=== PATIENT | female | born 1970 | race Caucasian/White ===

== ENCOUNTER → 2017-10-15 | Outpatient (CLI) | payer OTHER | LOC: M LRY 10:10 | DX: M25.521 Pain in right elbow (principal) | CPT/HCPCS: 73030; G0463 ==

== ENCOUNTER → 2019-11-30 | Outpatient (CLI) | payer OTHER ==
--- NOTE | 2019-11-30 14:20 | REP ---
Clinical: Trauma. Fall. Technique: AP, lateral, bilateral oblique views of the left elbow elbow. Findings: No acute fracture or dislocation is appreciated. Joint spaces and surrounding soft tissues appear normal. Lateral view demonstrates normal positioning to the anterior and posterior fat pads without evidence for effusion/hemarthrosis. No subcutaneous emphysema or foreign body identified. Impression: No fracture or dislocation. Electronically Signed by Jey Napoles MD 11/30/2019 02:11 P
== END ==
LOC: M LRY 13:30
PROVIDERS: ATTEND Nurse Practitioner Family
DX: S59.902A Unspecified injury of left elbow, initial encounter (principal); Y92.9 Unspecified place or not applicable; Y93.9 Activity, unspecified; Y99.9 Unspecified external cause status
CPT/HCPCS: 73080; G0463

== ENCOUNTER → 2022-11-27 | Outpatient (CLI) | payer OTHER ==
[~2022-11-27] MED LIST: JANU25TA PO; LIDOCAINE 1% MDV 20ML VIAL As Ordered ONE; METF10004 PO
[2022-11-27 10:50] VITALS: BP 153/88; TEMP 98.6; O2SAT 98
== END ==
LOC: M IRPRO 10:25
PROVIDERS: ATTEND Otolaryngology
DX: D37.032 Neoplasm of uncertain behavior of the submandibular salivary glands (principal)

== ENCOUNTER 2024-01-25 10:35 | Emergency (ER) | payer OTHER ==
[~2024-01-25] VITALS: Ht 157.5 cm; Wt 80.5 kg
[~2024-01-25 10:35] MED LIST changes: +EXCETAB22 PO; +IBUP200C28 PO; -LIDOCAINE 1% MDV 20ML VIAL As Ordered ONE
[2024-01-25 11:14] LABS: BASO # 0.1 10^3/uL (0.0-0.2); BASO % 0.5 % (0.0-1.0); EOS # 0.1 10^3/uL (0.0-0.5); EOS % 0.7 % (0.0-3.0); HEMATOCRIT 52.8 % (36.0-47.0); HEMOGLOBIN 17.5 g/dl (12.0-15.5); LYMPH # 1.6 10^3/uL (1.5-5.0); LYMPH % 11.7 % (24.0-44.0); MEAN CORPUSCULAR HEMOGLOBIN 27.5 pg (27.0-33.0); MEAN CORPUSCULAR HGB CONC 33.1 g/dl (32.0-36.5); MONO # 1.1 10^3/uL (0.0-0.8); MONO % 7.9 % (2.0-8.0); NEUTROPHILS # 10.9 10^3/uL (1.5-8.5); NEUTROPHILS % 78.6 % (36.0-66.0); PLATELET COUNT, AUTOMATED 288 10^3/uL (150-450); RED BLOOD COUNT 6.36 10^6/uL (4.00-5.40); WHITE BLOOD COUNT 13.9 10^3/uL (4.0-10.0)
[2024-01-25 11:19] LABS: PARTIAL THROMBOPLASTIN TIME 23.4 SECONDS (24.8-34.2); PROTHROMBIN TIME 12.9 SECONDS (12.5-14.5)
[2024-01-25] MEDS: ONDANSETRON 4MG 2ML VIAL IV ONE (11:22)
[2024-01-25] MEDS: KETOROLAC 30 MG/ML 1ML VIAL IV ONE (11:22)
[2024-01-25] MEDS: ASPIRIN 81MG CHEW TABLET PO ONE (11:22)
[2024-01-25] MEDS: NS 1,000 ML IV ONE (11:23)
[2024-01-25] MEDS: MORPHINE 2 MG/ML 1ML VIAL IV PRN (11:23)
[2024-01-25 11:30] LABS: ERYTHROCYTE SEDIMENTATION RATE 29 mm/hr (0-30)
[2024-01-25 11:36] LABS: CK-MB VALUE MASS < 1.0 NG/ML (<3.6)
[2024-01-25 11:37] LABS: LIPASE 30 U/L (12-53)
[2024-01-25 11:39] LABS: ALKALINE PHOSPHATASE 176 U/L (46-116); ALT/SGPT 21 U/L (7.0-40); AST/SGOT 10 U/L (<34); BILIRUBIN,DIRECT 0.4 MG/DL (<0.4); BILIRUBIN,TOTAL 1.4 MG/DL (0.3-1.2); BLOOD UREA NITROGEN 9 MG/DL (9-23); CALCIUM LEVEL 10.7 MG/DL (8.5-10.1); CARBON DIOXIDE LEVEL 26 MMOL/L (20-31); CHLORIDE LEVEL 103 MMOL/L (98-107); CREATININE FOR GFR 0.66 MG/DL (0.55-1.30); GLOMERULAR FILTRATION RATE > 60.0 (>51); GLUCOSE, FASTING 294 MG/DL (60-100); POTASSIUM SERUM 4.3 MMOL/L (3.5-5.1); SODIUM LEVEL 136 MMOL/L (136-145); TOTAL PROTEIN 7.9 G/DL (5.7-8.2)
[2024-01-25 11:40] LABS: THYROID STIMULATING HORMONE 2.547 uIU/ML (0.55-4.78)
[2024-01-25 11:41] LABS: FREE T4 1.14 NG/DL (0.89-1.76)
[2024-01-25 11:42] LABS: CPK CREATINE PHOSPHOKINASE 36 U/L (34-145); MB/CK RELATIVE INDEX 2.77 (< OR =4)
[2024-01-25 12:41] LABS: CK-MB VALUE MASS < 1.0 NG/ML (<3.6); CPK CREATINE PHOSPHOKINASE 28 U/L (34-145); MB/CK RELATIVE INDEX 3.57 (< OR =4)
[2024-01-25] MEDS ORDERED: IBUP-1022 PO (12:59)
[2024-01-25 13:34] VITALS: BP 129/69; TEMP 98.2; O2SAT 98
== END 2024-01-25 13:31 | disposition home or self-care (01) ==
LOC: M ED 10:35
DX: I30.0 Acute nonspecific idiopathic pericarditis (principal); R06.02 Shortness of breath; E10.9 Type 1 diabetes mellitus without complications; Z79.82 Long term (current) use of aspirin; Z79.899 Other long term (current) drug therapy
CPT/HCPCS: 71045; 80047; 80048; 80076; 82550; 82553; 83690; 83880; 84439; 84443; 84484; 85025; 85610; 85652; 85730; 86140; 93005; 93041; 94760; 96361; 96374; 96375; 99285; J1885; J2405

== ENCOUNTER 2024-01-30 11:16 | Inpatient (IN) | payer OTHER ==
[~2024-01-30] VITALS: Ht 157.5 cm; Wt 88.6 kg
[~2024-01-30 11:16] MED LIST changes: +IBUP-1022 PO
[2024-01-30 11:54] LABS: BASO # 0.1 10^3/uL (0.0-0.2); BASO % 0.5 % (0.0-1.0); EOS # 0.1 10^3/uL (0.0-0.5); EOS % 0.8 % (0.0-3.0); HEMOGLOBIN 15.5 g/dl (12.0-15.5); LYMPH # 1.9 10^3/uL (1.5-5.0); LYMPH % 14.5 % (24.0-44.0); MEAN CORPUSCULAR HEMOGLOBIN 28.5 pg (27.0-33.0); MEAN CORPUSCULAR HGB CONC 33.7 g/dl (32.0-36.5); MEAN CORPUSCULAR VOLUME 84.6 fl (80.0-96.0); MONO # 0.9 10^3/uL (0.0-0.8); MONO % 7.2 % (2.0-8.0); NEUTROPHILS # 9.9 10^3/uL (1.5-8.5); NEUTROPHILS % 76.5 % (36.0-66.0); PLATELET COUNT, AUTOMATED 295 10^3/uL (150-450); RED BLOOD COUNT 5.44 10^6/uL (4.00-5.40); WHITE BLOOD COUNT 12.9 10^3/uL (4.0-10.0)
[2024-01-30 12:00] LABS: ERYTHROCYTE SEDIMENTATION RATE 24 mm/hr (0-30)
[2024-01-30 12:01] LABS: INR 1.04; PROTHROMBIN TIME 13.3 SECONDS (12.5-14.5)
[2024-01-30 12:17] LABS: CK-MB VALUE MASS < 1.0 NG/ML (<3.6)
[2024-01-30 12:18] LABS: LIPASE 31 U/L (12-53)
[2024-01-30 12:19] LABS: ALBUMIN 3.5 G/DL (3.2-5.2); ALKALINE PHOSPHATASE 153 U/L (46-116); ALT/SGPT 21 U/L (7.0-40); AST/SGOT < 8 U/L (<34); BILIRUBIN,DIRECT 0.3 MG/DL (<0.4); BILIRUBIN,TOTAL 0.8 MG/DL (0.3-1.2); BLOOD UREA NITROGEN 8 MG/DL (9-23); CARBON DIOXIDE LEVEL 26 MMOL/L (20-31); CHLORIDE LEVEL 104 MMOL/L (98-107); GLOMERULAR FILTRATION RATE > 60.0 (>51); GLUCOSE, FASTING 279 MG/DL (60-100); SODIUM LEVEL 137 MMOL/L (136-145); TOTAL PROTEIN 7.1 G/DL (5.7-8.2)
[2024-01-30 12:23] LABS: CPK CREATINE PHOSPHOKINASE 35 U/L (34-145); MB/CK RELATIVE INDEX 2.85 (< OR =4)
[2024-01-30] MEDS ORDERED: ISOVUE-370 76% 100ML VIAL As Ordered ONE (12:50)
[2024-01-30] MEDS: KETOROLAC 30 MG/ML 1ML VIAL IV ONE (13:32)
[2024-01-30 18:28] LABS: RHEUMATOID FACTOR QUANT 7.5 IU/ML (<14)
[2024-01-30 18:31] LABS: THYROID STIMULATING HORMONE 4.803 uIU/ML (0.55-4.78)
[2024-01-30] MEDS ORDERED: TRUL0.5I INJ (19:01)
[2024-01-30] MEDS ORDERED: SITA50TAB PO (19:01)
[2024-01-30] MEDS ORDERED: LANTINJ4 SC (19:01)
[2024-01-30] MEDS ORDERED: HOME MED LIST COMPLETE! XX SCH (19:05)
[2024-01-30] MEDS: INSULIN LISPRO (NovoLOG) PER UNIT SC SCH (19:21)
[2024-01-30] MEDS: PANTOPRAZOLE 40MG VIAL IV SCH (19:21)
[2024-01-30 19:26] LABS: FREE T4 1.15 NG/DL (0.89-1.76)
[2024-01-30 19:31] LABS: PROCALCITONIN 0.07 ng/ml
[2024-01-30 20:08] VITALS: BP 172/98; TEMP 98.7; O2SAT 96
[2024-01-30 20:10] VITALS: PULSE 88
[2024-01-30] MEDS: IBUPROFEN 600MG TAB PO SCH (21:00)
[2024-01-30 21:11] VITALS: BP 142/102; O2SAT 90
[2024-01-30] MEDS: COLCHICINE 0.6 MG TABLET PO SCH (22:05)
[2024-01-31] VITALS (7 sets, daily range): BP systolic 130–158; BP diastolic 80–104; TEMP 97–98.3; O2SAT 96–97
[2024-01-31] MEDS: INSULIN LISPRO (NovoLOG) PER UNIT SC SCH (00:31)
[2024-01-31 06:01] LABS: HEMATOCRIT 44.2 % (36.0-47.0); MEAN CORPUSCULAR HEMOGLOBIN 28.8 pg (27.0-33.0); MEAN CORPUSCULAR HGB CONC 33.9 g/dl (32.0-36.5); MEAN CORPUSCULAR VOLUME 84.8 fl (80.0-96.0); PLATELET COUNT, AUTOMATED 278 10^3/uL (150-450); RED BLOOD COUNT 5.21 10^6/uL (4.00-5.40); WHITE BLOOD COUNT 13.5 10^3/uL (4.0-10.0)
[2024-01-31 06:17] LABS: BLOOD UREA NITROGEN 9 MG/DL (9-23); CALCIUM LEVEL 9.6 MG/DL (8.5-10.1); CARBON DIOXIDE LEVEL 23 MMOL/L (20-31); CHLORIDE LEVEL 105 MMOL/L (98-107); CREATININE FOR GFR 0.55 MG/DL (0.55-1.30); GLOMERULAR FILTRATION RATE > 60.0 (>51); GLUCOSE, FASTING 236 MG/DL (60-100); SODIUM LEVEL 135 MMOL/L (136-145)
[2024-01-31 07:29] LABS: HEMOGLOBIN A1c 11.6 % (4.0-6.0)
[2024-01-31] MEDS: BENZONATATE 100MG CAPSULE PO SCH (09:00)
[2024-01-31] MEDS: ENOXAPARIN 40MG/0.4ML SYRINGE (J1650 PER 10MG) SC SCH (09:06)
[2024-01-31] MEDS: LEVEMIR (INSULIN DETEMIR) 1 UNITS/0.01ML SC ONE (09:08)
[2024-01-31] MEDS: LEVEMIR (INSULIN DETEMIR) 1 UNITS/0.01ML SC SCH (20:18)
[2024-02-01 03:30] VITALS: BP 148/78; TEMP 97; O2SAT 95
[2024-02-01 07:51] LABS: BASO # 0.1 10^3/uL (0.0-0.2); BASO % 0.7 % (0.0-1.0); EOS # 0.2 10^3/uL (0.0-0.5); EOS % 2.1 % (0.0-3.0); HEMATOCRIT 43.5 % (36.0-47.0); HEMOGLOBIN 14.6 g/dl (12.0-15.5); LYMPH # 2.4 10^3/uL (1.5-5.0); LYMPH % 24.1 % (24.0-44.0); MEAN CORPUSCULAR HEMOGLOBIN 28.5 pg (27.0-33.0); MEAN CORPUSCULAR HGB CONC 33.6 g/dl (32.0-36.5); MEAN CORPUSCULAR VOLUME 84.8 fl (80.0-96.0); MONO % 10.3 % (2.0-8.0); NEUTROPHILS # 6.2 10^3/uL (1.5-8.5); NEUTROPHILS % 62.1 % (36.0-66.0); PLATELET COUNT, AUTOMATED 269 10^3/uL (150-450); RED BLOOD COUNT 5.13 10^6/uL (4.00-5.40); WHITE BLOOD COUNT 9.9 10^3/uL (4.0-10.0)
[2024-02-01 07:52] VITALS: BP 147/87; TEMP 97.1; O2SAT 97
[2024-02-01] MEDS ORDERED: IBUP-1720 PO (10:29)
[2024-02-01] MEDS ORDERED: COLC0.6T47 PO (10:29)
[2024-02-01] MEDS ORDERED: OMEP40CA4 PO (10:29)
[2024-02-04 12:42] LABS: ANA SCREEN, IFA NEGATIVE (NEGATIVE)
== END 2024-02-01 12:10 | disposition home or self-care (01) | DRG 316 ==
LOC: M ED 11:16 → M ED INP 11:17 → M MS4PR 20:10 → OBSVTOIN 01-31 11:30 → M PCU 01-31 14:45
PROVIDERS: ADMIT Internal Medicine; ATTEND Internal Medicine
DX: I30.9 Acute pericarditis, unspecified (principal); E11.9 Type 2 diabetes mellitus without complications; Z79.899 Other long term (current) drug therapy; R91.8 Other nonspecific abnormal finding of lung field

== ENCOUNTER → 2024-02-08 | Outpatient (CLI) | payer OTHER ==
[~2024-02-08] MED LIST changes: +COLC0.6T47 PO; +IBUP-1720 PO; +LANTINJ4 SC; +OMEP40CA4 PO; +SITA50TAB PO; +TRUL0.5I INJ
== END ==
LOC: M LAB 12:16
PROVIDERS: ATTEND Internal Medicine
DX: R79.82 Elevated C-reactive protein (CRP) (principal)

== ENCOUNTER → 2025-01-04 | Outpatient (CLI) | payer OTHER | LOC: M WUC 15:55 | PROVIDERS: ATTEND Student in an Organized Health Care Education/Training Program | DX: S20.212A Contusion of left front wall of thorax, initial encounter (principal); X58.XXXA Exposure to other specified factors, initial encounter; Y92.9 Unspecified place or not applicable; Y93.9 Activity, unspecified; Y99.9 Unspecified external cause status ==